=== PATIENT | female | born 1970 | race Caucasian/White ===

== ENCOUNTER → 2019-04-04 10:44 | Outpatient (CLI) | payer BC, SELFPAY ==
--- NOTE | 2019-04-04 10:49 | CT_ITS ---
PROCEDURE: CT SINUS WO CON CLINICAL HISTORY: RECURRENT SINUSITIS,HEADACHE Right-sided facial pain, sinus congestion, headache COMPARISON: No exams were available for comparison TECHNIQUE: Axial images obtained with sagittal and coronal reformats. All CT scans at the facility use one or more dose reduction, viz: automated exposure control, ma/kV adjustment per patient size (including targeted exams where dose is matched to indication, i.e. head), or iterative reconstruction technique. FINDINGS: No significant mucosal thickening air-fluid level or sinus mass evident. 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 No mastoid effusion. The ostiomeatal complexes are patent. There is minimal rightward nasal septal deviation. The orbits are unremarkable. There are few scattered small lymph nodes in the neck. 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
== END ==
PROVIDERS: PCP Internal Medicine Adolescent Medicine; Visit Provider Nurse Practitioner Family
DX: R51 Headache (principal); J01.00 Acute maxillary sinusitis, unspecified
CPT/HCPCS: 70486

== ENCOUNTER → 2020-07-07 14:50 | Outpatient (POV) | payer BC, SELFPAY | PROVIDERS: Visit Provider Dermatology | DX: Z00.00 Encounter for general adult medical examination without abnormal findings (principal) ==

== ENCOUNTER → 2022-07-08 11:17 | Outpatient (CLI) | payer OTHER, SELFPAY ==
--- NOTE | 2022-07-08 11:23 | XR_ITS ---
FINAL REPORT CLINICAL HISTORY: dyspnea, right base rhonchi - r/o PNEUMONIA FINDINGS: Two views of the chest were obtained. The heart size and pulmonary vascularity are within normal limits. The mediastinum is normal. No acute pulmonary abnormality is identified. There is no pneumothorax. The bony thorax is intact. IMPRESSION: No active cardiopulmonary disease. Reviewed, Interpreted and Dictated by Kel Aguirre III, MD Transcribed by Pat Ross Authenticated and [facility]
== END ==
PROVIDERS: PCP Internal Medicine Adolescent Medicine; Visit Provider Nurse Practitioner Family
DX: R06.00 Dyspnea, unspecified (principal)
CPT/HCPCS: 71046